=== PATIENT | female | born 1940 | race Caucasian/White ===

== ENCOUNTER 2016-08-11 11:13 | Day surgery (SDC) | payer MEDICARE, OTHER ==
[2016-08-07 17:02] LABS: HEMOGLOBIN 12.9 g/dL (12.0-16.0)
[2016-08-07 17:19] LABS: BUN (BLOOD UREA NITROGEN) 27 MG/DL (6-23); CALCIUM, SERUM 9.2 MG/DL (8.5-10.4); CHLORIDE, SERUM 102 MMOL/L (96-112); CO2 (CARBON DIOXIDE) 27 MMOL/L (24-34); CREATININE 0.86 MG/DL (0.55-1.02); GFR AFRICAN AMERICAN 77 ML/MIN (>=60); GFR NON AFRICAN AMERICAN 66 ML/MIN (>=60); GLUCOSE, SERUM 97 MG/DL (60-99); POTASSIUM, SERUM 4.5 MMOL/L (3.5-5.3); SODIUM, SERUM 139 MMOL/L (135-148)
--- NOTE | ~2016-08-11 | OP ---
Record Of Operation [facility] [address] [place]. [address] NAME: JUANI HUIZAR : 42 STATUS : [facility]#: [id number] AGE: 76 ADM/REG DATE : 08/11/16 MR#: [id number] REPORT SERV DATE: 08/12/16 DICTATED BY: PEACE MIRANDA DATE: 08/12/16 REPORT STATUS : Draft TRANSCRIBED BY: MODL DATE: 08/12/16 DATE OF PROCEDURE: 08/11/2016 SURGEON: Peace Miranda MD SOC ANALYST: None. PREPROCEDURE DIAGNOSIS: Left leg rest pain. POSTPROCEDURE DIAGNOSES: 1. 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 2. Left common iliac artery occlusion. PROCEDURES PERFORMED: 1. Ultrasound access to bilateral common femoral arteries. 2. Aortogram. 3. Kissing iliac stents 8 x 37 right and 8 x 57 left, Visi-Pro. ANESTHESIA: MAC and local. SPECIMENS: None. BLOOD LOSS: Minimal. COMPLICATIONS: None. INDICATIONS: Juani Huizar is a 76-year-old who suffers from rest pain and numbness of the left leg. She was found on ultrasound to have decreased PAO and left iliac occlusion. She was offered arteriogram. Risks, benefits, and alternatives were discussed. She understood and wished to proceed. OPERATIVE COURSE: The patient was brought to the operating room and placed in supine position on the operating room table. The patient had MAC anesthetic without complications. Groins were prepped and draped in sterile fashion. A time-out was performed. Identified the correct patient, procedure, and site. We began by using ultrasound to identify the right common femoral artery. It was patent and free of significant disease. We anesthetized the skin and accessed the artery under ultrasound guidance. Once we had access, a picture was placed in the chart for review. We passed a wire into the iliac system. The needle was removed. We placed a 5-Polish sheath. We then tried to advance the wire through the common iliac artery into the aorta and had a very difficult time. Once we navigated this stenosis, we were able to track a UF catheter over this into the proximal abdominal aorta. We then performed arteriogram demonstrating patent aorta down to the distal aortic bifurcation where there was heavy disease in the common iliacs bilaterally with about 65% to 70% stenosis on the right and complete occlusion on the left. The internal and external iliac arteries bilaterally were patent and without disease. We gave IV heparin and allowed adequate time for circulation. We sized up to a 6-Polish sheath on Record Of Operation [facility] [address] [place]. [address] NAME: JUANI HUIZAR : 42 STATUS : [facility] PAT#: [id number] AGE: 76 ADM/REG DATE : 08/11/16 MR#: [id number] REPORT SERV DATE: 08/12/16 DICTATED BY: PEACE MIRANDA DATE: 08/12/16 REPORT STATUS : Draft TRANSCRIBED BY: MARCO DATE: 08/12/16 the right. We then used the ultrasound to identify the left common femoral artery. It was patent, small, with mild to moderate disease. We anesthetized the skin and accessed that artery under ultrasound guidance. A wire was passed into the external iliac artery. We removed the needle and placed a 6-Polish sheath. Over the wire, we brought a Berenstein catheter and performed retrograde access to the iliac occlusion. We made several attempts to pass the wire and catheter up into the abdominal aorta from the side, and we were not able to do so. We then used the UF on the contralateral side to access the occlusion from above. We were able to get a wire through the occlusion and then into the true lumen of the external iliac artery. We then were able to feed the Glidewire from above into the left groin sheath. We then pulled the wire out of the sheath and had a body floss across the iliac occlusion. We then brought the Berenstein catheter up the left side over the wire and across the occlusion. We then retrieved the wire on the right and passed it back into the abdominal aorta. We placed another Glidewire up the left and got access across the occlusion into the aorta from the side as well. Due to the severe stenosis, we were unable to pass the stents from the left side. We therefore performed a balloon angioplasty as a predilatation technique using 6 x 40 balloons up each side for two minutes. We then brought up an 8 x 57 Visi-Pro stent up the left and an 8 x 37 on the right and expanded them in a kissing fashion into the distal aorta. Repeat arteriogram demonstrated brisk flow through the aortic bifurcation and through the iliac stents which were widely patent. Checking the sheaths on both sides, the arterial pressure coming out of the port was much better than preop. We then performed groin arteriograms on both sides. On the right, the common femoral was widely patent without significant disease. I had good location of the sheath and placed a StarClose there with good hemostasis. No complications. The left groin arteriogram demonstrated a very small artery, which was no bigger than the size of the sheath. The sheath and wire were pulled over here and pressure was held for 20 minutes. A pressure dressing was applied. The patient tolerated the procedure well. She was awakened and transferred to recovery in stable condition. JSH/TUCKERL Peace Miranda MD / [id number] CC: MD David Reyes M.D.
[~2016-08-11 11:13] MED LIST: AMOXICILLIN125 MG PO; ASAB PO; CALTRA600D PO; LEVOTHYROXIN75 MCG PO; MULTIPLE VIT PO; PLAVIX PO; PRESERVISION A1 EACH PO; PRIN10 PO; PRIN5 PO; SYN075 PO; VITAMIN D1000 UNI1 PO; ZOCOR40 PO
== END 2016-08-11 21:49 | disposition home or self-care (01) ==
LOC: SDC 11:13 → SSU1 16:20
PROVIDERS: Student in an Organized Health Care Education/Training Program
DX: I77.1 Stricture of artery (principal); I25.10 Atherosclerotic heart disease of native coronary artery without angina pectoris; F17.200 Nicotine dependence, unspecified, uncomplicated; I10 Essential (primary) hypertension; E03.9 Hypothyroidism, unspecified; D64.9 Anemia, unspecified; E78.00 Pure hypercholesterolemia, unspecified; M81.0 Age-related osteoporosis without current pathological fracture; M19.90 Unspecified osteoarthritis, unspecified site; Z90.49 Acquired absence of other specified parts of digestive tract; Z90.710 Acquired absence of both cervix and uterus; Z98.890 Other specified postprocedural states
CPT/HCPCS: 37221; 75625; 76937; 80048; 85014; 85018; 93005; A9270-GY; C1725; C1769; C1876; C1894; J0690; J2370; J2405; J3010; Q9966